=== PATIENT | male | born 1930 | race Caucasian/White ===

== ENCOUNTER 2017-05-28 11:48 | Emergency (ER) | payer OTHER, MEDICARE ==
[~2017-05-28] VITALS: Ht 167.6 cm; Wt 53.1 kg
[~2017-05-28 11:48] MED LIST: BIAXIN500 MG PO; CIPRO500 MG PO; DOCUSATE SODIU100 MG PO; FINASTERIDE5 MG PO; FLONASE16 G1 BOTH NARES; LO-DOSE ASPIRIN81 M2 PO; LOSARTAN POTASS50 MG PO; TAMSULOSIN HCL0.4 MG PO; TRAMADOL HCL50 MG PO; TYLENOL REGULA325 MG PO; ULTRAM50 MG PO
[2017-05-28 15:15] VITALS: BP 138/92
== END 2017-05-28 15:16 | disposition home or self-care (01) ==
LOC: EME 11:48
DX: S93.402A Sprain of unspecified ligament of left ankle, initial encounter (principal); W01.0XXA Fall on same level from slipping, tripping and stumbling without subsequent striking against object, initial encounter; Y93.01 Activity, walking, marching and hiking; Y92.129 Unspecified place in nursing home as the place of occurrence of the external cause; I10 Essential (primary) hypertension; E78.5 Hyperlipidemia, unspecified; R32 Unspecified urinary incontinence; Z88.0 Allergy status to penicillin; Z88.7 Allergy status to serum and vaccine
CPT/HCPCS: 70450; 72170; 73564; 73590; 73610; 99281; 99284